=== PATIENT | male | born 1990 | race African-American/Black ===

== ENCOUNTER 2021-09-18 12:29 | Emergency (ER) | payer MEDICARE, OTHER ==
[~2021-09-18] VITALS: Ht 193 cm; Wt 156.9 kg
[2021-09-18 13:50] LABS: HEMATOCRIT 34.7 % (36.7-47.1); MEAN CORPUSCULAR HEMOGLOBIN 27.9 uug (23.8-33.4); MEAN CORPUSCULAR VOLUME 83.3 fL (73.0-96.2); PLATELET COUNT (AUTO) 343 K/uL (152-348)
[2021-09-18 13:59] LABS: CARBON DIOXIDE 23 mmol/L (21-32); CHLORIDE 96 mmol/L (98-107); CREATININE 1.4 mg/dL (0.6-1.3); GLUCOSE 440 mg/dL (74-106); UREA NITROGEN, BLOOD 18 mg/dL (7-18)
[2021-09-18 14:01] LABS: ETHANOL < 3 MG/DL (0-0)
[2021-09-18 14:15] LABS: ACETAMINOPHEN < 2.0 ug/mL (10-30); ALANINE AMINOTRANSFERASE 49 U/L (16-63); ALKALINE PHOSPHATASE 117 U/L (50-136); ASPARTATE AMINOTRANSFERASE 21 U/L (15-37); BILIRUBIN,DIRECT 0.1 mg/dL (0.0-0.2); BILIRUBIN,TOTAL 0.2 mg/dL (0.2-1.0); TOTAL PROTEIN, SERUM 8.5 g/dL (6.4-8.2)
[2021-09-18] MEDS ORDERED: IV NORMAL SALINE 1000 ML BAG IV ONE (15:30)
[2021-09-18] MEDS ORDERED: INSULIN REGULAR, HUMAN 300 UNIT/3 ML VIAL SQ ONE (15:30)
[2021-09-18] MEDS ORDERED: LIDOCAINE HCL 1% 20 ML VIAL IJ ONE (15:30)
--- NOTE | 2021-09-18 16:10 | NUR ---
Pt was prepared for I&D, done by provider at bedside in 4B. Pt in no acute distress at this time. Pt needs met.
[2021-09-18] MEDS ORDERED: INSULIN REGULAR, HUMAN 300 UNIT/3 ML VIAL ONE (16:12)
[2021-09-18] MEDS ORDERED: METF-440 PO (16:39)
[2021-09-18] MEDS ORDERED: DOXY100T2 PO (16:39)
[2021-09-18 17:00] LABS: *BILIRUBIN,URIN NEGATIVE (NEGATIVE); *COLOR,URINE YELLOW (YELLOW); *KETONES,URINE NEGATIVE (NEGATIVE); *UROBILINOGEN,URINE 0.2 E.U./dl (NORMAL); LEUKOCYTE ESTERASE ,URINE NEGATIVE (NEGATIVE); NITRITE, URINE NEGATIVE (NEGATIVE); PH,URINE 5.5 (5.0-8.0)
[2021-09-18 17:02] LABS: *BLOOD, URINE TRACE (NEGATIVE); UGLUCOSE 2+ (NEGATIVE)
[2021-09-18 17:06] LABS: *CLARITY,URINE SLIGHTLY HAZY (CLEAR); BACTERIA,URINE NONE SEEN /HPF (NONE SEEN); RBC,URINE 0-3 /HPF (0-3); SQUAMOUS EPITHELIAL CELL,UR MODERATE /HPF (NONE SEEN); WBC,URINE 0-3 /HPF (0-3)
[2021-09-18 17:12] LABS: *AMPHETAMINE, URINE NEGATIVE (NEGATIVE); *CANNABINOID, URINE NEGATIVE (NEGATIVE); *COCCAINE, URINE NEGATIVE (NEGATIVE); *OPIATE, URINE NEGATIVE (NEGATIVE); *PHENCYCLIDINE SCREEN,URINE NEGATIVE (NEGATIVE)
--- NOTE | 2021-09-18 18:36 | NUR ---
Finished dinner tray without problem. Pt denies any needs at this time. Pt in no acute distress at this time.
--- NOTE | 2021-09-18 23:23 | NUR ---
Faxed [facility] to [facility] . Called back number .
--- NOTE | 2021-09-19 03:48 | NUR ---
Pt accepted by [facility] by Dr. Verdugo, will go to unit 2, report number [id number]
--- NOTE | 2021-09-19 05:15 | NUR ---
Pt in bed asleep, no acute distress noted
--- NOTE | 2021-09-19 05:22 | NUR ---
Pt bg of 460
--- NOTE | 2021-09-19 05:22 | NUR ---
Dr. Vogel notified of BG
[2021-09-19] MEDS ORDERED: INSULIN REGULAR, HUMAN 300 UNIT/3 ML VIAL IV ONE ×2 (05:45→07:30)
[2021-09-19] MEDS ORDERED: IV NS 1000 ML 1,000 ML IV ONE (05:45)
[2021-09-19] MEDS ORDERED: INSULIN REGULAR, HUMAN 300 UNIT/3 ML VIAL ONE ×2 (05:53→07:44)
--- NOTE | 2021-09-19 06:36 | NUR ---
Pt bg 360, dr. patel notified
--- NOTE | 2021-09-19 06:42 | NUR ---
report given to inge BARNES
--- NOTE | 2021-09-19 07:30 | NUR ---
bs 390
--- NOTE | 2021-09-19 08:30 | NUR ---
pt had breakfast.
--- NOTE | 2021-09-19 09:59 | NUR ---
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
--- NOTE | 2021-09-19 11:00 | NUR ---
transfer from [facility] here to take the pt. pt transfered in stable condition. pt denied any dizziness, n/v or pain. pt very happy about the disposition.
== END 2021-09-19 11:00 ==
LOC: ER 12:29
DX: F20.0 Paranoid schizophrenia (principal); R45.851 Suicidal ideations; L02.213 Cutaneous abscess of chest wall; E11.65 Type 2 diabetes mellitus with hyperglycemia; Z79.84 Long term (current) use of oral hypoglycemic drugs; Z91.14 Patient's other noncompliance with medication regimen; Z59.01 Sheltered homelessness; F17.210 Nicotine dependence, cigarettes, uncomplicated; Z81.8 Family history of other mental and behavioral disorders; Z20.822 Contact with and (suspected) exposure to COVID-19
CPT/HCPCS: 36415; 70030-TC; 71045; 85025; 93005; A4217; G0480; J1815; J3490; J7030